=== PATIENT | male | born 1975 | race Caucasian/White ===

== ENCOUNTER → 2017-08-04 | Outpatient (CLI) | payer OTHER, BC ==
[~2017-08-04] MED LIST: BENADRYL25 MG PO; PREDNICOT20 MG PO
== END | disposition home or self-care (01) ==
LOC: RAD 10:13
DX: M54.5 Low back pain (principal); R53.1 Weakness

== ENCOUNTER → 2017-08-29 | Outpatient (CLI) | payer OTHER, BC | END | disposition home or self-care (01) | LOC: US 07:06 | DX: M54.5 Low back pain (principal) ==

== ENCOUNTER → 2017-11-13 | Outpatient (CLI) | payer BC, OTHER | END | disposition home or self-care (01) | LOC: RAD 13:09 | DX: M86.141 Other acute osteomyelitis, right hand (principal) ==

== ENCOUNTER → 2021-12-06 | Outpatient (CLI) | payer BC, OTHER ==
[~2021-12-06] MED LIST changes: +FLOMAX0.4 MG PO; +LEVOTHYROXINE150 MCG PO; +PERCOCET 5-3251 EACH PO; +ZOFRAN ODT4 MG SL
== END | disposition home or self-care (01) ==
LOC: COVID19 08:18
PROVIDERS: ATTEND Internal Medicine
DX: Z11.52 Encounter for screening for COVID-19 (principal); Z20.822 Contact with and (suspected) exposure to COVID-19